=== PATIENT | male | born 1990 | race African-American/Black ===

== ENCOUNTER 2017-12-22 23:56 | Observation (INO) | payer MEDICAID, OTHER ==
[~2017-12-22] VITALS: Ht 175.3 cm; Wt 72.7 kg
[2017-12-22] MEDS ORDERED: LORazepam 2 mg/ml vial ONE (23:59)
[2017-12-23] MEDS ORDERED: diphenhydrAMINE 50 mg/ml inj ONE
[2017-12-23] MEDS ORDERED: haloperidol lactate 5mg/ml inj IM ONE
[2017-12-23] MEDS ORDERED: LORazepam 2 mg/ml vial ONE (00:05)
[2017-12-23 00:48] LABS: CREATINE KINASE 1274 U/L (39-308)
[2017-12-23] MEDS ORDERED: bacitracin 15gm ointment TP STA (00:48)
[2017-12-23] MEDS ORDERED: TETanus/Pertussis (Acell)/Diphther VAC/PF (Tdap-Adult) 0.5ml syringe IMVAC ONE (00:55)
[2017-12-23] MEDS ORDERED: normal saline 1000ML IV soln IVB ONE (01:00)
[2017-12-23] MEDS ORDERED: normal saline 1000ml 1,000 ML IV ONE ×2 (01:05→02:30)
[2017-12-23 02:14] LABS: CREATINE KINASE 1613 U/L (39-308)
[2017-12-23 02:51] LABS: ALANINE AMINOTRANSFERASE 34 U/L (12-78); ALBUMIN 4.1 G/DL (3.4-5.0); ALBUMIN/GLOBULIN RATIO 1.3 (1.1-1.5); ALKALINE PHOSPHATASE 68 IU/L (46-116); ANION GAP 10 (8-16); ASPARTATE AMINO TRANSFERASE 59 U/L (10-37); BILIRUBIN,TOTAL 0.4 MG/DL (0.1-1.0); BLOOD UREA NITROGEN 13 MG/DL (7-18); BUN/CREATININE RATIO 9.8 (5.4-32.0); CALCIUM 7.7 MG/DL (8.5-10.1); CHLORIDE 110 MMOL/L (99-107); CREATININE 1.32 MG/DL (0.60-1.10); GLUCOSE 92 MG/DL (70-104); POTASSIUM 3.5 MMOL/L (3.5-5.1); SODIUM 145 MMOL/L (135-145); TOTAL CARBON DIOXIDE 24.8 MMOL/L (24-32); TOTAL PROTEIN 7.3 G/DL (6.4-8.2); eGFR 78 ML/MIN
[2017-12-23 03:03] LABS: URINE AMPHETAMINE SCREEN NEGATIVE (Neg); URINE BARBITUATE SCREEN NEGATIVE (Neg); URINE BENZODIAZEPINES SCREEN NEGATIVE (Neg); URINE CANNABINOID SCREEN POSITIVE (Neg); URINE COCAINE SCREEN NEGATIVE (Neg); URINE METHADONE SCREEN NEGATIVE (Neg); URINE OPIATE SCREEN NEGATIVE (Neg); URINE PHENCYCLIDINE SCREEN NEGATIVE (Neg)
[2017-12-23 03:08] LABS: BASOPHILS % (AUTO) 0.1 % (0-1); EOSINOPHILS % (AUTO) 0.1 % (0-6); HEMATOCRIT 37.6 % (42.0-52.0); HEMOGLOBIN 12.6 g/dl (14.0-17.9); LYMPHOCYTES # (AUTO) 1.5 X10'3 (1.1-4.8); LYMPHOCYTES % (AUTO) 11.2 % (21-51); MEAN CORPUSCULAR HEMOGLOBIN 23.8 PG (27.0-31.0); MEAN CORPUSCULAR HGB CONC 33.5 % (33.0-36.5); MEAN CORPUSCULAR VOLUME 71.1 FL (78-98); MEAN PLATELET VOLUME 8.4 FL (7.4-10.4); MONOCYTES # (AUTO) 0.5 X10'3 (0-0.9); MONOCYTES % (AUTO) 4.1 % (2-12); NEUTROPHILS % (AUTO) 84.5 % (42-75); PLATELET COUNT 62 X10'3 (140-440); RED BLOOD COUNT 5.29 X10'6 (4.70-6.10); RED CELL DISTRIBUTION WIDTH 14.8 % (11.5-14.5)
[2017-12-23 03:16] LABS: CLARITY,URINE CLEAR (Clear); COLOR,URINE YELLOW (Yellow); GLUCOSE, URINE NEGATIVE (Neg); KETONES,URINE NEGATIVE (Neg); LEUKOCYTE ESTERASE ,URINE NEGATIVE (Neg); NITRITES, URINE NEGATIVE (Neg); OCCULT BLOOD,URINE MODERATE (Neg); PH,URINE 5.5 (4.8-8.0); PROTEIN,URINE NEGATIVE (Neg); UROBILINOGEN,URINE 0.2 E.U/dL (0.2-1.0)
[2017-12-23 03:17] LABS: UA COLLECTION TYPE CLN CATCH MIDSTREAM
[2017-12-23 03:24] LABS: AMORPHOUS URATES 1+; BACTERIA,URINE NONE SEEN /HPF (Neg); MUCUS STRANDS MODERATE /LPF (Neg); SQUAMOUS EPITHELIAL CELL,UR FEW /LPF (FEW); WBC,URINE 0-4 /HPF (0-4)
[2017-12-23 03:28] LABS: LARGE PLATELETS FEW; PLATELET ESTIMATE DECREASED; TOTAL CELLS COUNTED 100
[2017-12-23 03:30] LABS: MICROCYTOSIS 1+; TARGET CELLS 1+
[2017-12-23] MEDS ORDERED: NO HOME MEDS (03:33)
[2017-12-23] MEDS ORDERED: magnesium hydroxide 30ml (MOM) UD suspension PO PRN (04:45)
[2017-12-23] MEDS ORDERED: sodium chloride 0.45% 1,000 ML IV SCH (04:45)
[2017-12-23] MEDS ORDERED: bisacodyl 10mg suppository rectal RC PRN (04:45)
[2017-12-23] MEDS ORDERED: acetaminophen 325mg tablet PO PRN (04:45)
[2017-12-23] MEDS ORDERED: ondansetron/PF 4mg/2ml inj IV PRN (04:45)
[2017-12-23 06:47] LABS: CLARITY,URINE CLEAR (Clear); COLOR,URINE YELLOW (Yellow); GLUCOSE, URINE NEGATIVE (Neg); KETONES,URINE TRACE mg/dl (Neg); LEUKOCYTE ESTERASE ,URINE NEGATIVE (Neg); NITRITES, URINE NEGATIVE (Neg); OCCULT BLOOD,URINE MODERATE (Neg); PROTEIN,URINE NEGATIVE (Neg); UROBILINOGEN,URINE 0.2 E.U/dL (0.2-1.0)
[2017-12-23 06:50] LABS: UA COLLECTION TYPE URINAL
[2017-12-23 06:53] LABS: BACTERIA,URINE FEW /HPF (Neg); MUCUS STRANDS FEW /LPF (Neg); SQUAMOUS EPITHELIAL CELL,UR FEW /LPF (FEW); WBC,URINE 0-4 /HPF (0-4)
[2017-12-23 07:06] LABS: ANION GAP 12 (8-16); BLOOD UREA NITROGEN 11 MG/DL (7-18); CALCIUM 8.1 MG/DL (8.5-10.1); CHLORIDE 109 MMOL/L (99-107); CREATININE 1.22 MG/DL (0.60-1.10); ETHANOL 0.098 GM/DL (0.0-0.010); GLUCOSE 84 MG/DL (70-104); POTASSIUM 3.5 MMOL/L (3.5-5.1); SODIUM 145 MMOL/L (135-145); TOTAL CARBON DIOXIDE 24.1 MMOL/L (24-32); eGFR 86 ML/MIN
[2017-12-23 07:07] LABS: CREATINE KINASE 6161 U/L (39-308)
[2017-12-23 08:36] VITALS: BP 117/60
[2017-12-23 10:07] VITALS: BP 122/70
== END 2017-12-23 10:35 | disposition left against medical advice (07) ==
LOC: ER 23:56 → ED HOLD 12-23 04:45 → EEVIPCON 12-23 04:45 → EDBEDREQTM 12-23 06:36 → ORTHO 4S 12-23 07:25
PROVIDERS: ADMIT Emergency Medicine; ATTEND Emergency Medicine
DX: S05.31XA Ocular laceration without prolapse or loss of intraocular tissue, right eye, initial encounter (principal); F12.90 Cannabis use, unspecified, uncomplicated; M62.82 Rhabdomyolysis; X58.XXXA Exposure to other specified factors, initial encounter; Y93.89 Activity, other specified; Y92.89 Other specified places as the place of occurrence of the external cause; Y99.8 Other external cause status
CPT/HCPCS: 12011; 36415; 70450; 73564; 80048; 80053; 80305; 80320; 81001; 82550; 83874; 85025; 87070; 90471; 90715; 96360; 96361; 99285; G0378; J1200; J1630; J2060; J7030; 96372

== ENCOUNTER 2018-03-02 23:50 | Emergency (ER) | payer MEDICAID ==
[~2018-03-02] VITALS: Ht 167.6 cm; Wt 75.0 kg
[~2018-03-02 23:50] MED LIST: NO HOME MEDS
[2018-03-03 00:03] VITALS: BP 126/85
[2018-03-03] MEDS ORDERED: ondansetron 4mg rapidly disintigrating tab PO ONE (00:20)
[2018-03-03] MEDS ORDERED: ibuprofen tablet 400 MG TABLET PO ONE (00:20)
[2018-03-03] MEDS ORDERED: HYDROcodone/acetaminophen 5mg/325mg tablet PO ONE (00:20)
[2018-03-03] MEDS ORDERED: clindamycin 150mg capsule PO ONE (00:50)
[2018-03-03] MEDS ORDERED: CLIN150C2 PO (00:51)
[2018-03-03] MEDS ORDERED: HYDR-3965 PO (00:52)
[2018-03-03] MEDS ORDERED: IBUP-1986 PO (00:52)
== END 2018-03-03 01:00 | disposition home or self-care (01) ==
LOC: ER 23:50
DX: K04.7 Periapical abscess without sinus (principal); F12.90 Cannabis use, unspecified, uncomplicated; Z88.1 Allergy status to other antibiotic agents; Z79.2 Long term (current) use of antibiotics; Z79.899 Other long term (current) drug therapy
CPT/HCPCS: 41800; 99284